=== PATIENT | male | born 1975 | race Two or more races ===

== ENCOUNTER 2016-11-30 23:00 | Emergency (ER) | payer OTHER ==
[~2016-11-30] VITALS: Ht 175.3 cm; Wt 99.8 kg
[2016-12-01] MEDS ORDERED: HYDROmorphone HCL 2 MG/ML VL IV ONE (00:30)
[2016-12-01] MEDS ORDERED: ONDANSETRON HCL 4 MG/2 ML VIAL IV ONE (00:30)
[2016-12-01 00:55] VITALS: BP 121/78
== END 2016-12-01 03:30 | disposition home or self-care (01) ==
LOC: ER 23:08
DX: M25.512 Pain in left shoulder (principal); W01.0XXA Fall on same level from slipping, tripping and stumbling without subsequent striking against object, initial encounter; Y93.89 Activity, other specified; Y99.8 Other external cause status; Y92.89 Other specified places as the place of occurrence of the external cause
CPT/HCPCS: 73030; 96374; 96375; 99284; J1170; J2405